=== PATIENT | male | born 1980 | race Caucasian/White ===

== ENCOUNTER 2017-11-25 06:13 | Emergency (ER) | payer OTHER, SELFPAY ==
[2017-11-25 06:33] LABS: Bilirubin Negative (Negative); Blood, Urine Negative (Negative); Clarity CLEAR (Clear); Glucose, Urine (Dipstick) Negative (Negative); Leukocyte Negative (Negative); Nitrite Negative (Negative); Protein, Urine (Dipstick) Negative (Neg-Trace); Specific Gravity, Urine 1.024 (1.002-1.036); Urobilinogen 0.2 mg/dL (0.2-1.0)
[2017-11-25] MEDS ORDERED: Ketorolac Tromethamine 30 MG/ML VIAL ONE (06:50)
[2017-11-25] MEDS ORDERED: Ondansetron ODT 8 MG TAB ONE (06:50)
[2017-11-25 06:59] LABS: #Basophils 0.1 thou/uL (0.0-0.2); #Eosinphils 0.1 thou/uL (0.0-0.7); #Monocytes 1.2 thou/uL (0.11-0.59); #Neutrophils 9.5 thou/uL (1.40-6.50); %Basophils 0.5 % (0.0-1.0); %Eosinophils 0.5 % (0.0-10.0); %Lymphocytes 15.7 % (21.0-51.0); %Monocytes 9.6 % (0.0-10.0); %Neutrophils 73.8 % (42.0-75.0); Hemoglobin 14.6 g/dL (14.0-18.0); Mean Corpuscular HGB CONC 32.9 g/dL (32.0-36.0); Mean Corpuscular Hemoglobin 31.9 pg (27.0-31.0); Mean Corpuscular Volume 96.8 fL (78.0-98.0); Platelet Count 231 thou/uL (130-400); Red Blood Cell (RBC) Count 4.58 mill/uL (4.70-6.10); White Blood Cell (WBC) Count 12.9 thou/uL (4.8-10.8)
[2017-11-25 07:23] LABS: Anion Gap 14 mmol/L (10-20); BUN (Urea Nitrogen) 16 mg/dL (8.9-20.6); Calc. Creatinine Clearance 0 mL/min (70-130); Carbon Dioxide 23 mmol/L (22-29); Chloride 104 mmol/L (98-107); Estimated GFR-MDRD 69; Glucose 108 mg/dL (70-105); Lipase 27 U/L (8-78); Sodium 137 mmol/L (136-145)
--- NOTE | 2017-11-25 07:50 | CT ---
CT ABDOMEN AND PELVIS NONCONTRAST: HISTORY: Left flank pain. FINDINGS: There is distention of the left renal collecting system and ureter to the level of a 0.4 cm calculus at the left ureterovesicular junction. Right renal collecting system and ureter and the urinary blad [place] are decompressed. Multiple smaller calcifications are present within the calyces of each kidney. Subtle stranding surrounds the left kidney. Small hiatal hernia. Postoperative and prominent degenerative changes lumbar spine with leftward con vex curvature. A lack of contrast limits evaluation for other abnormalities. IMPRESSION: Partial obstruction at a 4 mm left ureterovesicular junction calculus. Additional smaller nonobstruc ting bilateral renal calculi. POS: [facility]
== END 2017-11-25 09:00 | disposition home or self-care (01) ==
LOC: ERS 06:13
DX: N20.0 Calculus of kidney (principal); F41.9 Anxiety disorder, unspecified; F32.9 Major depressive disorder, single episode, unspecified; Z79.899 Other long term (current) drug therapy
CPT/HCPCS: 36415; 74176; 80048; 81003; 83690; 85025; 96361; 96374; 96375; J1885; J2270